=== PATIENT | male | born 1985 | race African-American/Black ===

== ENCOUNTER 2019-04-28 15:14 | Emergency (ER) | payer OTHER ==
[2019-04-28] MEDS ORDERED: Ketorolac Tromethamine 60 MG/2 ML VIAL ONE (15:35)
== END 2019-04-28 16:12 | disposition home or self-care (01) ==
LOC: SCSER 15:14
DX: M25.572 Pain in left ankle and joints of left foot (principal); M25.571 Pain in right ankle and joints of right foot; M25.522 Pain in left elbow; F20.0 Paranoid schizophrenia
CPT/HCPCS: 96372; J1885